=== PATIENT | female | born 1990 | race Two or more races ===

== ENCOUNTER 2019-08-17 11:20 | Observation (INO) | payer MEDICAID ==
[~2019-08-17] VITALS: Ht 167.6 cm; Wt 101.2 kg
[2019-08-17] MEDS ORDERED: PREN-96 PO (12:03)
[2019-08-17 13:04] LABS: Basophils # (auto) 0 uL; Eosinophils # (auto) 0.1 uL; Eosinophils % (auto) 1.9 % (0.0-7.0); Lymphocytes # (auto) 2.3 uL; Neutrophils % (auto) 61.4 % (37.0-80.0); Nucleated Red Blood Cells % 0.1 %
[2019-08-17 13:06] LABS: Basophils % (auto) 0.1 % (0.0-2.0); Hematocrit 34.1 % (36.0-46.0); Lymphocytes % (auto) 29.9 % (10.0-50.0); Mean Corpuscular Hemoglobin 24.8 pg (28.0-32.0); Mean Corpuscular Hgb Conc. 32.2 g/dL (32.0-36.0); Mean Corpuscular Volume 76.9 fL (80.0-100.0); Monocytes # (auto) 0.5 uL; Monocytes % (auto) 6.7 % (0.0-12.0); Neutrophils # (auto) 4.7 uL; Platelet Count (auto) 291 10^3/uL (140-450); Red Blood Cells 4.44 10^6/uL (4.0-5.20); Red Cell Distribution Width 15.8 % (11.8-14.3); White Blood Cell 7.7 10^3/uL (4.4-10.8)
[2019-08-17 13:19] LABS: INR 0.93 (0.9-1.15); Partial Thromboplastin Time 25.6 sec (23.64-32.05)
[2019-08-17 13:23] LABS: Albumin 2.8 g/dL (3.4-5.0); BUN/Creatinine Ratio 12.2; Calcium 9.1 mg/dL (8.5-10.1); Potassium 3.9 mmol/L (3.5-5.1)
[2019-08-17 13:26] LABS: Bilirubin, Total 0.2 mg/dL (0.2-1.0); Total Protein 6.9 g/dL (6.4-8.2)
[2019-08-17 13:28] LABS: Uric Acid 3.9 mg/dL (2.6-6.0)
[2019-08-18 07:09] LABS: RPR Non Reactive (Non Reactive)
== END 2019-08-17 13:48 | disposition home or self-care (01) | DRG 566 ==
LOC: LDRP 11:20
PROVIDERS: ADMIT Obstetrics & Gynecology; ATTEND Obstetrics & Gynecology
DX: O26.893 Other specified pregnancy related conditions, third trimester (principal); R21 Rash and other nonspecific skin eruption; Z3A.34 34 weeks gestation of pregnancy
CPT/HCPCS: 36415; 59025; 80053; 81002; 84112; 84550; 85025; 85610; 85730; 86592; G0378

== ENCOUNTER 2019-08-24 08:10 | Observation (INO) | payer MEDICAID ==
[~2019-08-24 08:10] MED LIST: PREN-96 PO
== END 2019-08-24 10:10 | disposition home or self-care (01) | DRG 566 ==
LOC: LDRP 08:10
PROVIDERS: ADMIT Obstetrics & Gynecology; ATTEND Obstetrics & Gynecology
DX: O26.86 Pruritic urticarial papules and plaques of pregnancy (PUPPP) (principal); Z3A.35 35 weeks gestation of pregnancy
CPT/HCPCS: 59025; 81002; G0378

== ENCOUNTER 2019-08-31 09:36 | Observation (INO) | payer MEDICAID | END 2019-08-31 11:05 | disposition home or self-care (01) | DRG 566 | LOC: LDRP 09:36 | PROVIDERS: ADMIT Specialist; ATTEND Specialist | DX: O26.86 Pruritic urticarial papules and plaques of pregnancy (PUPPP) (principal); Z3A.36 36 weeks gestation of pregnancy | CPT/HCPCS: 59025; 76818; 81002; G0378 ==

== ENCOUNTER 2019-09-07 11:31 | Observation (INO) | payer MEDICAID | END 2019-09-07 13:35 | disposition home or self-care (01) | DRG 861 | LOC: LDRP 11:31 | PROVIDERS: ADMIT Specialist; ATTEND Specialist | DX: Z34.93 Encounter for supervision of normal pregnancy, unspecified, third trimester (principal); Z3A.37 37 weeks gestation of pregnancy | CPT/HCPCS: 59025; 76818; 81002; G0378 ==

== ENCOUNTER 2019-09-14 12:35 | Observation (INO) | payer MEDICAID | END 2019-09-14 13:42 | disposition home or self-care (01) | DRG 566 | LOC: LDRP 12:35 | PROVIDERS: ADMIT Specialist; ATTEND Specialist | DX: O26.86 Pruritic urticarial papules and plaques of pregnancy (PUPPP) (principal); Z3A.38 38 weeks gestation of pregnancy | CPT/HCPCS: 59025; 81002; G0378 ==

== ENCOUNTER 2019-09-17 12:00 | Observation (INO) | payer MEDICAID | END 2019-09-17 13:50 | disposition home or self-care (01) | DRG 566 | LOC: LDRP 12:00 | PROVIDERS: ADMIT Obstetrics & Gynecology; ATTEND Obstetrics & Gynecology | DX: O26.86 Pruritic urticarial papules and plaques of pregnancy (PUPPP) (principal); Z3A.39 39 weeks gestation of pregnancy | CPT/HCPCS: 59025; 76818; 81002; G0378 ==

== ENCOUNTER 2019-09-19 19:01 | Inpatient (IN) | payer MEDICAID ==
[~2019-09-19] VITALS: Ht 167.6 cm; Wt 104.8 kg
[2019-09-19] MEDS ORDERED: LACT. RINGERS/OXYTOCIN 20UNITS 1,000 ML IV SCH (19:17)
[2019-09-19] MEDS ORDERED: PHISODERM TOP SOLN 240ML BTL TOP PRN (19:30)
[2019-09-19] MEDS ORDERED: METHYLERGONOVINE MALEATE 0.2 MG/ML AMP IM PRN (19:30)
[2019-09-19] MEDS ORDERED: WITCH HAZEL-GLYCERIN PAD TOP PRN (19:30)
[2019-09-19] MEDS ORDERED: LIDOCAINE 2%HCL (LOCAL ANESTH.) INJ 20ML MDV ID ONE (19:30)
[2019-09-19] MEDS ORDERED: BUTORPHANOL TARTRATE 2 MG/1 ML VIAL IV PRN (19:30)
[2019-09-19] MEDS ORDERED: PENICILLIN G POT 5MIL/D5 50ML 50 ML IV ONE (19:30)
[2019-09-19] MEDS: LACTATED RINGER'S 1,000 ML IV SCH (20:11)
[2019-09-19 20:14] LABS: Basophils # (auto) 0 uL; Eosinophils # (auto) 0.1 uL; Lymphocytes # (auto) 2.4 uL; Monocytes # (auto) 0.5 uL; Red Cell Distribution Width 17.1 % (11.8-14.3)
[2019-09-19] MEDS ORDERED: DERMOPLAST 60ML BOTTLE TOP PRN (20:15)
[2019-09-19 20:16] LABS: Basophils % (auto) 0.2 % (0.0-2.0); Eosinophils % (auto) 1.5 % (0.0-7.0); Hemoglobin 11.7 g/dL (12.2-16.2); Lymphocytes % (auto) 29.1 % (10.0-50.0); Mean Corpuscular Hemoglobin 25.2 pg (28.0-32.0); Mean Corpuscular Hgb Conc. 32.5 g/dL (32.0-36.0); Mean Corpuscular Volume 77.5 fL (80.0-100.0); Monocytes % (auto) 6.3 % (0.0-12.0); Neutrophils # (auto) 5.2 uL; Neutrophils % (auto) 62.9 % (37.0-80.0); Nucleated Red Blood Cells % 0.1 %; Platelet Count (auto) 257 10^3/uL (140-450); Red Blood Cells 4.64 10^6/uL (4.0-5.20); White Blood Cell 8.3 10^3/uL (4.4-10.8)
[2019-09-19 20:26] LABS: Urine Bacteria FEW /hpf (None Seen); Urine Blood Negative /uL (Negative); Urine Mucus FEW (None Seen); Urine Specific Gravity 1.016 (1.001-1.035); Urine WBC 2 /hpf (0 - 5)
[2019-09-19 20:32] LABS: BUN/Creatinine Ratio 19.5; Calcium 9.3 mg/dL (8.5-10.1)
[2019-09-19 20:35] LABS: Bilirubin, Total 0.2 mg/dL (0.2-1.0); Total Protein 7.4 g/dL (6.4-8.2)
[2019-09-19 20:37] LABS: INR 0.92 (0.9-1.15); Partial Thromboplastin Time 26.8 sec (23.64-32.05)
[2019-09-19] MEDS: [UNRECOGNIZED DRUG - OTHER] PO PRN (20:45)
[2019-09-19] MEDS: MISOPROSTOL PO PRN (20:45)
[2019-09-19] MEDS ORDERED: PENICILLIN G POTASSIUM 2,500,000 UNITS in D5W 5% 50 ML IV SCH (23:30)
[2019-09-20] MEDS: PENICILLIN G POTASSIUM 2,500,000 UNITS in D5W 5% 50 ML IV SCH ×6 (00:13→21:53)
[2019-09-20] MEDS: MISOPROSTOL PO PRN ×3 (00:45→10:31)
[2019-09-20] MEDS: [UNRECOGNIZED DRUG - OTHER] PO PRN ×3 (00:45→10:31)
[2019-09-20] MEDS: LACTATED RINGER'S 1,000 ML IV SCH ×3 (04:04→21:54)
[2019-09-21] MEDS ORDERED: IBUPROFEN 600 MG TAB PO PRN (01:15)
--- NOTE | 2019-09-21 02:46 | NUR ---
Ambulation: Patient OOB with standby assistance by RN. Patient ambulated to bathroom with steady gait. Patient able to void 300ml without difficulty. [facility] teaching provided with returned demonstration by patient. Clean gown provided and bed linen changed. Patient ambulated back to bed with steady gait and no distress noted.
[2019-09-21 02:48] VITALS: BP 127/81
[2019-09-21 05:06] LABS: RPR Non Reactive (Non Reactive)
[2019-09-21 07:13] VITALS: BP 112/56
[2019-09-21 11:02] VITALS: BP 120/68
[2019-09-21 14:30] VITALS: BP 121/58
--- NOTE | 2019-09-21 19:00 | NUR ---
Opening Shift Note Assumed care of patient, MOB awake and alert x 4. No S/S of distress/SOB on room air. Denies pain at this time. Fundus firm at U with small amount of bleeding noted, no clots. Patient educated on S/S of heavy bleeding, hemorrhage, patient verbalized understanding. Complete assessment done see interventions. Instructed on POC and to call for assist PRN, will continue to monitor for changes Q1hr and PRN.
[2019-09-21 19:10] VITALS: BP 119/71
[2019-09-21 23:00] VITALS: BP 124/68
--- NOTE | 2019-09-22 02:50 | NUR ---
IV removal IV DC'd with clean sterile technique, catheter fully intact. Pressure dressing applied to site. Patient tolerated well.
[2019-09-22 03:00] VITALS: BP 110/66
--- NOTE | 2019-09-22 06:02 | NUR ---
Report received from Christen Jamison RN on stable pt. Assumed care. Addendum: 09/22/19 at 0643 by Rossi Soares RN Amended: Links added.
[2019-09-22 06:12] VITALS: BP 122/76
--- NOTE | 2019-09-22 06:12 | NUR ---
REPORT GIVEN ON STABLE PATIENT, ENDORSED CARE.
--- NOTE | 2019-09-22 08:08 | NUR ---
This RN at bedside, breast pump provided to pt. Education from [facility] guide provided on Jaundice.
[2019-09-22 11:00] VITALS: BP 124/66
[2019-09-22 14:55] VITALS: BP 111/64
--- NOTE | 2019-09-22 14:55 | NUR ---
Pt educated on the use of the breast pump. Pt verbalizes understanding.
--- NOTE | 2019-09-22 18:17 | NUR ---
Report given to Hardy Mcmanus RN on stable pt. No signs of distress or discomfort noted. Addendum: 09/22/19 at 1820 by Rossi Soares RN Amended: Links added.
[2019-09-22 19:00] VITALS: BP 133/64
[2019-09-22 23:00] VITALS: BP 117/56
[2019-09-23 03:30] VITALS: BP 116/77
[2019-09-23 06:58] VITALS: BP 129/64
--- NOTE | 2019-09-23 09:16 | NUR ---
PT NOTIFIED OF GETTING DISCHARGE AND THE WOULD STAY FOR [facility] AT 7 PM. PT VERBALIZED UNDERSTANDING.
[2019-09-23 10:30] VITALS: BP 129/74
--- NOTE | 2019-09-23 11:10 | NUR ---
Discharge: Discharge instructions given as ordered. Pt encouraged to follow up with [facility] as instructed. All questions and concerns addressed. Patient verbalized understanding. Medication reconciliation completed and copy given to patient. All required/requested vaccines given and copies of vaccinations given to patient. Patient encouraged to prepare to depart unit.
--- NOTE | 2019-09-23 11:25 | NUR ---
Pt Discharged off the unit but staying in the room as courtesy.
== END 2019-09-23 11:25 | disposition home or self-care (01) | DRG 560 ==
LOC: LDRP 19:01
PROVIDERS: ADMIT Obstetrics & Gynecology; ATTEND Obstetrics & Gynecology
PROC: 10E0XZZ Delivery of Products of Conception, External Approach (ICD-10-PCS; principal; 2019-09-21)
PROC: 3E0P3VZ Introduction of Hormone into Female Reproductive, Percutaneous Approach (ICD-10-PCS; 2019-09-21)
DX: O26.86 Pruritic urticarial papules and plaques of pregnancy (PUPPP) (principal); O76 Abnormality in fetal heart rate and rhythm complicating labor and delivery; Z37.0 Single live birth; O99.824 Streptococcus B carrier state complicating childbirth; Z3A.39 39 weeks gestation of pregnancy; Z90.49 Acquired absence of other specified parts of digestive tract
CPT/HCPCS: 36415; 59025; 59409; 80053; 81001; 84112; 85025; 85610; 85730; 86592; 86850; 86900; 86901; 94760; 96365; 96366; 96374; G0378; J2540; J2590; J7060

== ENCOUNTER 2021-01-07 08:04 | Observation (INO) | payer MEDICAID | END 2021-01-07 09:45 | disposition home or self-care (01) | LOC: LDRP 08:04 | PROVIDERS: ADMIT Obstetrics & Gynecology; ATTEND Obstetrics & Gynecology | DX: O24.419 Gestational diabetes mellitus in pregnancy, unspecified control (principal); Z3A.31 31 weeks gestation of pregnancy | CPT/HCPCS: 59025; 76818; 81002; 82948; 82962; G0378 ==

== ENCOUNTER 2021-01-15 08:59 | Observation (INO) | payer MEDICAID | END 2021-01-15 10:40 | disposition home or self-care (01) | LOC: LDRP 08:59 | PROVIDERS: ADMIT Obstetrics & Gynecology; ATTEND Obstetrics & Gynecology | DX: O24.419 Gestational diabetes mellitus in pregnancy, unspecified control (principal); Z3A.32 32 weeks gestation of pregnancy | CPT/HCPCS: 59025; 76818; 81002; 82948; 82962; G0378 ==

== ENCOUNTER 2021-01-22 09:03 | Observation (INO) | payer MEDICAID | END 2021-01-22 10:13 | disposition home or self-care (01) | LOC: LDRP 09:03 | PROVIDERS: ADMIT Obstetrics & Gynecology; ATTEND Obstetrics & Gynecology | DX: O24.419 Gestational diabetes mellitus in pregnancy, unspecified control (principal); Z3A.33 33 weeks gestation of pregnancy | CPT/HCPCS: 59025; 76818; 81002; 82948; 82962; G0378 ==

== ENCOUNTER 2021-01-29 09:00 | Observation (INO) | payer MEDICAID | END 2021-01-29 10:19 | disposition home or self-care (01) | LOC: LDRP 09:00 | PROVIDERS: ADMIT Specialist; ATTEND Specialist | DX: O24.419 Gestational diabetes mellitus in pregnancy, unspecified control (principal); Z3A.34 34 weeks gestation of pregnancy | CPT/HCPCS: 59025; 76818; 81002; 82948; 82962; 94760; G0378 ==

== ENCOUNTER 2021-02-05 08:25 | Observation (INO) | payer MEDICAID | END 2021-02-05 10:03 | disposition home or self-care (01) | LOC: LDRP 09:12 | PROVIDERS: ADMIT Specialist; ATTEND Specialist | DX: O24.419 Gestational diabetes mellitus in pregnancy, unspecified control (principal); Z3A.35 35 weeks gestation of pregnancy | CPT/HCPCS: 59025; 76818; 81002; 82962; G0378 ==

== ENCOUNTER 2021-02-12 11:46 | Observation (INO) | payer MEDICAID | END 2021-02-12 13:38 | disposition home or self-care (01) | LOC: LDRP 11:46 | PROVIDERS: ADMIT Obstetrics & Gynecology; ATTEND Obstetrics & Gynecology | DX: O24.419 Gestational diabetes mellitus in pregnancy, unspecified control (principal); Z3A.36 36 weeks gestation of pregnancy | CPT/HCPCS: 59025; 81002; 82962; G0378 ==

== ENCOUNTER 2021-02-25 07:34 | Observation (INO) | payer MEDICAID | END 2021-02-25 09:17 | disposition home or self-care (01) | LOC: LDRP 08:00 | PROVIDERS: ADMIT Obstetrics & Gynecology; ATTEND Obstetrics & Gynecology | DX: O24.419 Gestational diabetes mellitus in pregnancy, unspecified control (principal); Z3A.38 38 weeks gestation of pregnancy | CPT/HCPCS: 59025; 76818; 81002; 82948; 82962; 94760; G0378 ==

== ENCOUNTER 2021-03-03 16:00 | Observation (INO) | payer MEDICAID | END 2021-03-07 11:40 | disposition home or self-care (01) | LOC: LDRP 03-07 10:14 | PROVIDERS: ADMIT Obstetrics & Gynecology; ATTEND Obstetrics & Gynecology | DX: O24.419 Gestational diabetes mellitus in pregnancy, unspecified control (principal); Z3A.40 40 weeks gestation of pregnancy | CPT/HCPCS: 76818; 82962; G0378; 59025; 81002; 82948; 94762 ==

== ENCOUNTER 2021-03-07 23:20 | Inpatient (IN) | payer MEDICAID ==
[~2021-03-07] VITALS: Ht 167.6 cm; Wt 107.5 kg
[2021-03-08] MEDS ORDERED: BUTORPHANOL TARTRATE 2 MG/1 ML VIAL IV PRN ×2 (00:45)
[2021-03-08] MEDS ORDERED: PROMETHAZINE HCL 25 MG/ML 1ML IM PRN (00:45)
[2021-03-08] MEDS ORDERED: PROMETHAZINE HCL 25 MG/ML 1ML IV PRN (00:45)
[2021-03-08] MEDS ORDERED: LACTATED RINGER'S 1,000 ML IV SCH (00:45)
[2021-03-08] MEDS ORDERED: WITCH HAZEL-GLYCERIN PAD TOP PRN (00:45)
[2021-03-08] MEDS ORDERED: PHISODERM TOP SOLN 240ML BTL TOP PRN (00:45)
[2021-03-08] MEDS ORDERED: LIDOCAINE 2%HCL (LOCAL ANESTH.) INJ 20ML MDV IJ PRN (00:45)
[2021-03-08] MEDS ORDERED: DERMOPLAST 60ML BOTTLE TOP PRN (00:45)
[2021-03-08] MEDS ORDERED: PENICILLIN G POT 5MIL/D5 50ML 50 ML IV ONE (00:45)
[2021-03-08 01:34] LABS: Basophils # (auto) 0 10 ^3/uL (0-0.2); Basophils % (auto) 0.2 % (0.0-2.0); Eosinophils # (auto) 0.1 10 ^3/uL (0-0.8); Eosinophils % (auto) 0.7 % (0.0-7.0); Hematocrit 38.1 % (36.0-46.0); Lymphocytes # (auto) 2.5 10 ^3/uL (0.4-5.4); Nucleated Red Blood Cells % 0.1 %
[2021-03-08 01:35] LABS: Hemoglobin 12.9 g/dL (12.2-16.2); Lymphocytes % (auto) 23.9 % (10.0-50.0); Mean Corpuscular Hemoglobin 26.2 pg (28.0-32.0); Mean Corpuscular Hgb Conc. 33.7 g/dL (32.0-36.0); Mean Corpuscular Volume 77.8 fL (80.0-100.0); Monocytes # (auto) 0.6 10 ^3/uL (0-1.3); Monocytes % (auto) 6.1 % (0.0-12.0); Neutrophils # (auto) 7.1 10 ^3/uL (1.6-8.6); Neutrophils % (auto) 69.1 % (37.0-80.0); Red Cell Distribution Width 16.4 % (11.8-14.3); White Blood Cell 10.3 10^3/uL (4.4-10.8)
[2021-03-08] MEDS ORDERED: TERBUTALINE SULFATE 1 MG/ML 1ML VIAL SC ONE (01:45)
[2021-03-08] MEDS ORDERED: LACT. RINGERS/OXYTOCIN 20UNITS 500 ML IV ONE ×2 (01:45→02:15)
[2021-03-08 01:47] LABS: Albumin 2.9 g/dL (3.4-5.0); BUN/Creatinine Ratio 16.3; Potassium 4.1 mmol/L (3.5-5.1)
[2021-03-08 01:50] LABS: INR 0.92 (0.9-1.15); Partial Thromboplastin Time 27.2 sec (23.0-31.2)
[2021-03-08 01:51] LABS: Bilirubin, Total 0.2 mg/dL (0.2-1.0); Total Protein 7.4 g/dL (6.4-8.2)
[2021-03-08 02:23] LABS: Urine Bacteria FEW /hpf (None Seen); Urine Blood TRACE /uL (Negative); Urine Mucus FEW (None Seen); Urine Specific Gravity 1.017 (1.001-1.035); Urine WBC 5 /hpf (0 - 5)
[2021-03-08 02:37] LABS: Alcohol, Urine < 3.0 mg/dL (0-10); Amphetamine Screen, Urine NEGATIVE (NEGATIVE); Barbiturate Scree,Urine NEGATIVE (NEGATIVE); Benzodiazephine Screen, Urine NEGATIVE (NEGATIVE); Cannabinoid Screen, Urine NEGATIVE (NEGATIVE); Cocaine Screen, Urine NEGATIVE (NEGATIVE); Opiate Scree,Urine NEGATIVE (NEGATIVE); Phencyclidine Screen, Urine NEGATIVE (NEGATIVE)
[2021-03-08] MEDS ORDERED: LACT. RINGERS/OXYTOCIN 20UNITS 1,000 ML IV SCH (04:00)
[2021-03-08] MEDS ORDERED: PENICILLIN G POTASSIUM 2,500,000 UNITS in D5W 5% 50 ML IV SCH (04:45)
[2021-03-08] MEDS ORDERED: PENICILLIN G POT 5MILLION UNIT VIAL ONE (05:32)
[2021-03-08] MEDS ORDERED: STERILE WATER 10 ML ONE (05:32)
[2021-03-08] MEDS ORDERED: METHYLERGONOVINE MALEATE 0.2 MG/ML AMP IM ONE ×2 (07:47→08:00)
[2021-03-08] MEDS ORDERED: IBUPROFEN 600 MG TAB PO PRN (08:00)
[2021-03-08] MEDS ORDERED: ACETAMINOPHEN 325 MG TAB PO PRN (08:00)
[2021-03-08 11:10] VITALS: BP 136/87
[2021-03-08 15:00] VITALS: BP 123/72
[2021-03-08 19:00] VITALS: BP 114/72
[2021-03-08 23:13] VITALS: BP 136/87
[2021-03-09 03:14] VITALS: BP 120/80
[2021-03-09 06:06] LABS: RPR Non Reactive (Non Reactive)
[2021-03-09 08:00] VITALS: BP 120/70
[2021-03-09 11:30] VITALS: BP 122/82
== END 2021-03-09 13:30 | disposition home or self-care (01) | DRG 560 ==
LOC: LDRP 23:20 → OBSVTOIN 03-08 00:07 → LDRP 03-08 00:08
PROVIDERS: ADMIT Obstetrics & Gynecology; ATTEND Obstetrics & Gynecology
PROC: 0KQM0ZZ Repair Perineum Muscle, Open Approach (ICD-10-PCS; principal; 2021-03-08)
PROC: 10E0XZZ Delivery of Products of Conception, External Approach (ICD-10-PCS; 2021-03-08)
DX: O24.420 Gestational diabetes mellitus in childbirth, diet controlled (principal); O70.1 Second degree perineal laceration during delivery; Z20.822 Contact with and (suspected) exposure to COVID-19; Z37.0 Single live birth; Z3A.40 40 weeks gestation of pregnancy
CPT/HCPCS: 36415; 59025; 59409; 76818; 80053; 80307; 81001; 81002; 82948; 82962; 85025; 85610; 85730; 86592; 86762; 86850; 86900; 86901; 87426; 94760; 94762; 96360; 96361; 96365; 96366; 96372; G0378; J2540; J2590; J7060